=== PATIENT | male | born 1990 | race Caucasian/White ===

== ENCOUNTER 2019-05-05 13:38 | Emergency (ER) | payer BC ==
[2019-05-05 14:21] VITALS: BP 132/73
[2019-05-05] MEDS ORDERED: TETRACAINE HCL 0.5% OPH SOLN 4 ML OD ONE (14:46)
--- NOTE | 2019-05-05 14:48 | ER Document Report ---
ED Medical Screen (RME) - General Chief Complaint: Eye Problem Stated Complaint: RIGHT EYE PAIN Time Seen by Provider: 05/05/19 14:44 Mode of Arrival: Ambulatory Information source: Patient Notes: Otherwise healthy 28-year-old male presenting to the emergency department with right eye injury. Patient reports 2 days ago he was grinding some metal and he believes metal may have gotten into his eye. He states significant pain and blurred vision since then. He denies the use of any contact lenses. erythema and tearing noted from right eye, no obvious foreign body noticed. I have greeted and performed a rapid initial assessment of this patient. A comprehensive ED assessment and evaluation of the patient, analysis of test results and completion of the medical decision making process will be conducted by additional ED providers. I have specifically instructed the patient or family members with the patient to immediately return to any nursing staff should anything change in the patient's condition or with their chief complaint. TRAVEL OUTSIDE OF THE [place] IN LAST 30 DAYS: No - Related Data Allergies/Adverse Reactions: No Known Allergies Allergy (Verified 05/05/19 14:41) Past Medical History - Social History Frequency of alcohol use: None Drug Abuse: None Physical Exam - Vital signs Vitals: Temp Pulse Resp BP Pulse Ox 98.0 F 81 16 132/73 H 97 05/05/19 14:19 05/05/19 14:19 05/05/19 14:19 05/05/19 14:19 05/05/19 14:19 Course - Vital Signs Vital signs: Temp Pulse Resp BP Pulse Ox 98.0 F 81 16 132/73 H 97 05/05/19 14:19 05/05/19 14:19 05/05/19 14:19 05/05/19 14:19 05/05/19 14:19
--- NOTE | 2019-05-05 17:03 | ER Document Report ---
ED Eye Complaint - General Chief Complaint: Eye Problem Stated Complaint: RIGHT EYE PAIN Time Seen by Provider: 05/05/19 14:44 Mode of Arrival: Ambulatory Notes: HPI: 28-year-old male who was grinding some metal Sunday wearing glasses. They were not protective goggles. He states he felt something go into his eye. He states was very minimal irritation. No double or blurry vision. Because of pain and irritation to the eye. No fevers or vomiting. Tetanus up-to-date. ROS: See HPI Reviewed vital signs and nursing note as charted by RN. PHYSICAL EXAM: CONSTITUTIONAL: Alert and oriented and responds appropriately to questions. Well-appearing; well-nourished HEAD: Normocephalic; atraumatic EYES: PERRL; some conjunctival injection. Small black object to the 9 o'clock position of the right pupil SKIN: No acute lesions noted NEURO: CN 2-12 intact PSYCH: The patient's mood and manner are appropriate. Grooming and personal hygiene are appropriate. TRAVEL OUTSIDE OF THE [place] IN LAST 30 DAYS: No - Related Data Allergies/Adverse Reactions: No Known Allergies Allergy (Verified 05/05/19 14:41) Past Medical History - General Information source: Patient - Social History Smoking Status: Current Every Day Smoker Frequency of alcohol use: None Drug Abuse: None Family History: Reviewed & Not Pertinent Patient has suicidal ideation: No Patient has homicidal ideation: No Physical Exam - Vital signs Vitals: Temp Pulse Resp BP Pulse Ox 98.0 F 81 16 132/73 H 97 05/05/19 14:19 05/05/19 14:19 05/05/19 14:19 05/05/19 14:19 05/05/19 14:19 Course - Re-evaluation Re-evalutation: 05/05/19 17:01 Given the above history and physical we will use tetracaine to numb the eye and then using the slit lamp for help to remove the foreign body. We will most likely start the patient on erythromycin eye ointment until that time with strict return precautions and follow-up with the server manager. Patient has no tenderness or swelling to the periorbital region. Full extraocular range of motion with no double or blurred vision. No loss of globe structure leading me to believe globe disruption. 05/05/19 17:17 Using the slit lamp I was unable to remove the object using a Q-tip. I was able to use an 18-gauge needle and was able to remove the object with a small circular rust ring remaining. I was able to call the server manager Dr. Cowan who states that he will see the patient at 930 tomorrow. Patient will be discharged home with strict return precautions and erythromycin eye ointment with follow-up tomorrow morning as scheduled. - Vital Signs Vital signs: Temp Pulse Resp BP Pulse Ox 98.0 F 81 16 132/73 H 97 05/05/19 14:19 05/05/19 14:19 05/05/19 14:19 05/05/19 14:19 05/05/19 14:19 Procedures - Eye Procedure Right Foreign body removal: Right Alcaine Drops Administered: Yes Fluorescein applied: Right Antibiotic Oinment/Drps Admin: Right eye Slit lamp used: Yes Notes: 05/05/19 17:22 See progress note Discharge - Discharge Clinical Impression: Foreign body of right eye Qualifiers: Encounter type: initial encounter Qualified Code(s): T15.91XA - Foreign body on external eye, part unspecified, right eye, initial encounter Condition: Good Disposition: HOME, SELF-CARE Additional Instructions: Come back immediately with any increased pain, blurry vision, swelling around the eye, fevers, or any other acute problems. Please follow-up tomorrow at [address] Jackson's office as provided. Use the erythromycin eye ointment as scheduled. Prescriptions: Erythromycin Base [Erythromycin Oph 1 Gm Oint Ud] 1 applic OU QID 7 Days #1 tube Referrals: BOZENA COWAN MD [ACTIVE STAFF] - Follow up as needed
[2019-05-05] MEDS ORDERED: ERYTHROMYCIN 0.5% OPH OINTMENT 3.5 GM TUBE OD ONE (17:23)
== END 2019-05-05 18:00 | disposition home or self-care (01) ==
LOC: ER 13:38
DX: T15.91XA Foreign body on external eye, part unspecified, right eye, initial encounter (principal); H57.11 Ocular pain, right eye; F17.200 Nicotine dependence, unspecified, uncomplicated
CPT/HCPCS: 99283; J3490 ×2